=== PATIENT | female | born 1990 | race Caucasian/White ===

== ENCOUNTER 2017-03-10 16:16 | Emergency (ER) | payer BC ==
[~2017-03-10] VITALS: Ht 157.5 cm; Wt 66.3 kg
[~2017-03-10 16:16] MED LIST: ZOFRAN ODT8 MG PO
[2017-03-10 17:26] LABS: HEMATOCRIT 43.6 % (36.0-46.0); HEMOGLOBIN 15.2 G/DL (11.9-15.5); MCH 32.3 PG (29.0-34.0); MCHC 34.9 G/DL (30.0-36.0); MCV 92.8 FL (83-99); PLATELET COUNT 389 K/uL (156-360); RBC DIS.WIDTH-CV 11.6 % (11.8-14.6); RBC DIS.WIDTH-SD 39.8 % (39-53)
[2017-03-10 17:34] LABS: APPEARANCE CLEAR ((CLEAR)); BILIRUBIN NEGATIVE; BLOOD NEGATIVE; COLOR STRAW ((YELLOW)); GLUCOSE (STRIP) NEGATIVE; KETONES NEGATIVE; LEUKOCYTES TRACE; NITRITE NEGATIVE; PROTEIN (STRIP) NEGATIVE; SPECIFIC GRAVITY 1.004 (1.000-1.030); UROBILINOGEN 0.2 MG/DL (0.2-1.0)
[2017-03-10 17:39] LABS: ALBUMIN 4.1 g/dL (3.2-4.8); CHLORIDE 105 mEq/L (99-109); POTASSIUM 4.2 mEq/L (3.7-5.4); SODIUM 137 mEq/L (136-147)
[2017-03-10 17:41] LABS: GLUCOSE 91 mg/dL (70-99)
[2017-03-10 17:42] LABS: TOTAL PROTEIN 7.6 g/dL (6.4-8.3)
[2017-03-10 17:43] LABS: TOTAL BILIRUBIN 0.3 mg/dL (0.0-1.0)
[2017-03-10 17:45] LABS: ALKALINE PHOSPHATASE 67 IU/L (3-129); CREATININE 1.1 mg/dL (0.6-1.3); GFR ESTIMATE (CALCULATED) > 59 mL/min/
[2017-03-10 17:46] LABS: UREA NITROGEN (BUN) 12 mg/dL (9-23)
[2017-03-10 17:47] LABS: BACTERIA RARE /HPF; EPITHELIAL CELLS RARE /HPF; MUCUS TRACE /LPF; RED BLOOD CELLS 0-5 /HPF (0-5); UCUL ADDED? NO; WHITE BLOOD CELLS 0-5 /HPF (0-5)
[2017-03-10 17:47] LABS: AST (GOT) 21 IU/L (2-34)
[2017-03-10 17:48] LABS: ALT (GPT) 16 IU/L (3-49); LIPASE 29 U/L (1.0-51.0)
[2017-03-10 17:54] LABS: QUANTITATIVE HCG < 4.0 MIU/ML
[2017-03-10] MEDS ORDERED: PROMETHAZINE HC25 M1 PO (18:56)
[2017-03-10] MEDS ORDERED: MOBIC7.5 MG PO (18:56)
[2017-03-10] MEDS ORDERED: BENTYL20 MG PO (18:57)
[2017-03-10 19:36] VITALS: BP 148/82
== END 2017-03-10 19:37 | disposition home or self-care (01) ==
LOC: EME 16:16
DX: R10.31 Right lower quadrant pain (principal); R11.2 Nausea with vomiting, unspecified; R19.7 Diarrhea, unspecified; M79.1 Myalgia; D86.9 Sarcoidosis, unspecified; F17.200 Nicotine dependence, unspecified, uncomplicated; Z88.1 Allergy status to other antibiotic agents
CPT/HCPCS: 74177; 80053; 81003; 83690; 84702; 85027; J1885; J2405; J7030

== ENCOUNTER 2017-05-02 08:07 | Day surgery (SDC) | payer BC ==
[~2017-05-02] VITALS: Ht 157.5 cm; Wt 64.8 kg
[~2017-05-02 08:07] MED LIST changes: +BENADRYL ALLERG25 MG PO; +BENTYL20 MG PO; +MOBIC7.5 MG PO; +PROMETHAZINE HC25 M1 PO; +PROZAC40 MG PO; +XANAX0.25 MG PO; +ZOFRAN4 MG PO
[2017-05-02 08:54] VITALS: BP 149/87
[2017-05-02] MEDS ORDERED: ULTRAM50 MG PO (11:48)
[2017-05-02 12:14] VITALS: BP 139/65
[2017-05-02 12:37] VITALS: BP 136/73
== END 2017-05-02 12:48 | disposition home or self-care (01) ==
LOC: SDC 08:07
PROC: 0JBL0ZZ Excision of Right Upper Leg Subcutaneous Tissue and Fascia, Open Approach (ICD-10-PCS; principal; 2017-05-02)
DX: M79.9 Soft tissue disorder, unspecified (principal); R22.41 Localized swelling, mass and lump, right lower limb; F17.210 Nicotine dependence, cigarettes, uncomplicated; Z88.1 Allergy status to other antibiotic agents; F41.8 Other specified anxiety disorders; D86.3 Sarcoidosis of skin; F10.10 Alcohol abuse, uncomplicated
CPT/HCPCS: 88305; J0690; J1170; J2250; J2405; S0020

== ENCOUNTER 2017-07-07 16:14 | Emergency (ER) | payer BC, OTHER ==
[~2017-07-07] VITALS: Ht 208.3 cm; Wt 64.0 kg
[~2017-07-07 16:14] MED LIST changes: +ULTRAM50 MG PO
[2017-07-07 16:54] LABS: HEMATOCRIT 42.8 % (36.0-46.0); HEMOGLOBIN 15.1 G/DL (11.9-15.5); MCH 33.1 PG (29.0-34.0); MCHC 35.3 G/DL (30.0-36.0); MCV 93.9 FL (83-99); PLATELET COUNT 257 K/uL (156-360); RED BLOOD COUNT 4.56 M/uL (3.80-5.20)
[2017-07-07 17:03] LABS: CHLORIDE 103 mEq/L (99-109); POTASSIUM 3.6 mEq/L (3.7-5.4); SODIUM 138 mEq/L (136-147)
[2017-07-07 17:05] LABS: GLUCOSE 90 mg/dL (70-99); TOTAL PROTEIN 6.8 g/dL (6.4-8.3)
[2017-07-07 17:07] LABS: TOTAL BILIRUBIN 0.4 mg/dL (0.0-1.0)
[2017-07-07 17:08] LABS: ALKALINE PHOSPHATASE 41 IU/L (3-129)
[2017-07-07 17:09] LABS: GFR ESTIMATE (CALCULATED) > 59 mL/min/
[2017-07-07 17:10] LABS: AST (GOT) 15 IU/L (2-34); UREA NITROGEN (BUN) 6 mg/dL (9-23)
[2017-07-07 17:12] LABS: ALT (GPT) 15 IU/L (3-49); LIPASE 11 U/L (1.0-51.0)
[2017-07-07 17:52] LABS: APPEARANCE CLEAR ((CLEAR)); BILIRUBIN NEGATIVE; BLOOD NEGATIVE; COLOR COLORLESS ((YELLOW)); GLUCOSE (STRIP) NEGATIVE; KETONES NEGATIVE; LEUKOCYTES NEGATIVE; NITRITE NEGATIVE; PROTEIN (STRIP) NEGATIVE; SPECIFIC GRAVITY 1.002 (1.000-1.030); UROBILINOGEN 0.2 MG/DL (0.2-1.0)
[2017-07-07 18:06] LABS: QUANTITATIVE HCG < 4.0 MIU/ML
[2017-07-07] MEDS ORDERED: SKELAXIN800 MG PO (19:01)
[2017-07-07] MEDS ORDERED: NAPROSYN500 MG PO (19:01)
[2017-07-07 19:17] VITALS: BP 123/84
[2017-07-08] MEDS ORDERED: NAPROSYN500 MG PO (18:30)
[2017-07-08] MEDS ORDERED: ZOFRAN ODT4 MG PO (18:33)
[2017-07-08] MEDS ORDERED: VALTREX50 MG/ML PO (18:33)
[2017-07-08] MEDS ORDERED: FIORICET 50-301 EAC1 PO (18:34)
[2017-07-08] MEDS ORDERED: SYSTANE ULTRA 015 ML BOTH EYES (18:34)
[2017-07-08] MEDS ORDERED: MOTRIN800 MG PO (18:35)
[2017-07-08] MEDS ORDERED: VIVITROL380 MG/3.4 IM (18:35)
[2017-07-08] MEDS ORDERED: OMEPRAZOLE40 M1 PO (18:36)
== END 2017-07-07 19:19 | disposition home or self-care (01) ==
LOC: EME 16:14
PROVIDERS: Nurse Practitioner Family
DX: G43.909 Migraine, unspecified, not intractable, without status migrainosus (principal); S16.1XXA Strain of muscle, fascia and tendon at neck level, initial encounter; Q07.00 Arnold-Chiari syndrome without spina bifida or hydrocephalus; Z88.1 Allergy status to other antibiotic agents; F17.200 Nicotine dependence, unspecified, uncomplicated
CPT/HCPCS: 80053; 81003; 83690; 84702; 85027; 99281; 99284; J1200; J1885; J2405; J2765; J7030

== ENCOUNTER 2017-07-08 13:02 | Observation (INO) | payer BC, OTHER ==
[~2017-07-08] VITALS: Ht 157.5 cm; Wt 62.3 kg
[~2017-07-08 13:02] MED LIST changes: +NAPROSYN500 MG PO; +SKELAXIN800 MG PO
[2017-07-08 15:15] LABS: HEMOGLOBIN 15.1 G/DL (11.9-15.5); MCH 33.2 PG (29.0-34.0); MCHC 34.3 G/DL (30.0-36.0); MCV 96.7 FL (83-99); PLATELET COUNT 244 K/uL (156-360); RBC DIS.WIDTH-CV 12.2 % (11.8-14.6); RBC DIS.WIDTH-SD 43.5 % (39-53); RED BLOOD COUNT 4.55 M/uL (3.80-5.20); WHITE BLOOD COUNT 8.7 K/uL (4.1-10.2)
[2017-07-08 15:23] LABS: CHLORIDE 105 mEq/L (99-109); SODIUM 141 mEq/L (136-147)
[2017-07-08 15:25] LABS: GLUCOSE 81 mg/dL (70-99)
[2017-07-08 15:26] LABS: POTASSIUM 4.8 mEq/L (3.7-5.4)
[2017-07-08 15:29] LABS: CREATININE 0.9 mg/dL (0.6-1.3); GFR ESTIMATE (CALCULATED) > 59 mL/min/
[2017-07-08 15:30] LABS: UREA NITROGEN (BUN) 8 mg/dL (9-23)
[2017-07-08 15:37] LABS: QUANTITATIVE HCG < 4.0 MIU/ML
[2017-07-08] MEDS ORDERED: NAPROSYN500 MG PO (18:30)
[2017-07-08] MEDS ORDERED: ZOFRAN ODT4 MG PO (18:33)
[2017-07-08] MEDS ORDERED: VALTREX50 MG/ML PO (18:33)
[2017-07-08] MEDS ORDERED: FIORICET 50-301 EAC1 PO (18:34)
[2017-07-08] MEDS ORDERED: SYSTANE ULTRA 015 ML BOTH EYES (18:34)
[2017-07-08] MEDS ORDERED: MOTRIN800 MG PO (18:35)
[2017-07-08] MEDS ORDERED: VIVITROL380 MG/3.4 IM (18:35)
[2017-07-08] MEDS ORDERED: OMEPRAZOLE40 M1 PO (18:36)
[2017-07-08 19:42] VITALS: BP 139/67
[2017-07-08 23:03] LABS: APPEARANCE CLEAR ((CLEAR)); BILIRUBIN NEGATIVE; BLOOD NEGATIVE; COLOR YELLOW ((YELLOW)); GLUCOSE (STRIP) NEGATIVE; KETONES NEGATIVE; LEUKOCYTES NEGATIVE; NITRITE NEGATIVE; PROTEIN (STRIP) NEGATIVE; SPECIFIC GRAVITY 1.015 (1.000-1.030); UCUL ADDED? NO; UROBILINOGEN 0.2 MG/DL (0.2-1.0)
[2017-07-08 23:41] LABS: BENZODIAZEPINES, URINE SCREEN Negative (200 ng/mL)
[2017-07-09 00:42] VITALS: BP 108/69
[2017-07-09 03:18] VITALS: BP 102/57
[2017-07-09 05:38] LABS: HEMATOCRIT 40.2 % (36.0-46.0); HEMOGLOBIN 13.2 G/DL (11.9-15.5); MCH 31.8 PG (29.0-34.0); MCHC 32.8 G/DL (30.0-36.0); MCV 96.9 FL (83-99); PLATELET COUNT 244 K/uL (156-360); RBC DIS.WIDTH-CV 12.2 % (11.8-14.6); RBC DIS.WIDTH-SD 43.5 % (39-53); RED BLOOD COUNT 4.15 M/uL (3.80-5.20); WHITE BLOOD COUNT 6.3 K/uL (4.1-10.2)
[2017-07-09 05:58] LABS: CHLORIDE 106 MEQ/L (99-109); CREATININE 1.2 MG/DL (0.6-1.3); GFR ESTIMATE (CALCULATED) 57 mL/min/; GLUCOSE 90 mg/dL (70-99); POTASSIUM 4.3 MEQ/L (3.7-5.4); SODIUM 140 MEQ/L (136-147); UREA NITROGEN (BUN) 11 mg/dL (9-23)
[2017-07-09 07:29] VITALS: BP 108/60
[2017-07-09 11:45] VITALS: BP 115/66
[2017-07-09] MEDS ORDERED: CYCLOBENZAPRINE10 MG PO (12:43)
[2017-07-09] MEDS ORDERED: SUMATRIPTAN SUC25 MG PO (12:45)
== END 2017-07-09 13:22 | disposition home or self-care (01) ==
LOC: EME 13:02 → EDOF 17:36 → 4SOUTH 17:36 → ENRESERV 17:37 → 4SOUTH 19:33
PROVIDERS: Internal Medicine; Physician Assistant
DX: R51 Headache (principal); Q07.00 Arnold-Chiari syndrome without spina bifida or hydrocephalus; D86.3 Sarcoidosis of skin; Z87.442 Personal history of urinary calculi; M54.2 Cervicalgia; F41.9 Anxiety disorder, unspecified; F32.9 Major depressive disorder, single episode, unspecified; F17.210 Nicotine dependence, cigarettes, uncomplicated; F10.10 Alcohol abuse, uncomplicated; I10 Essential (primary) hypertension; Z82.49 Family history of ischemic heart disease and other diseases of the circulatory system; Z83.3 Family history of diabetes mellitus; Z88.1 Allergy status to other antibiotic agents
CPT/HCPCS: 70450; 70496; 70551; 80048; 80306 90; 81003; 84702; 85027; 99281; 99285; G0378; J1885